=== PATIENT | female | born 1970 | race Caucasian/White ===

== ENCOUNTER → 2016-06-30 | Outpatient (CLI) | payer BC ==
[~2016-06-30] MED LIST: BEYAZ1 TAB PO; BIRTH CONTROL; FLAGYL500 MG PO; LORTAB 5/500 501 TAB PO; ZOFRAN 4MG T4 MG/TAB PO
== END ==
LOC: MC.RAD 08:52
DX: Z12.31 Encounter for screening mammogram for malignant neoplasm of breast (principal)

== ENCOUNTER → 2018-08-16 | Outpatient (CLI) | payer BC | LOC: MC.RAD 11:42 | DX: Z12.31 Encounter for screening mammogram for malignant neoplasm of breast (principal) ==

== ENCOUNTER → 2020-07-12 | Outpatient (CLI) | payer BC | LOC: MC.RAD | DX: R92.2 Inconclusive mammogram (principal); R92.8 Other abnormal and inconclusive findings on diagnostic imaging of breast; N63.20 Unspecified lump in the left breast, unspecified quadrant ==

== ENCOUNTER 2020-09-20 14:39 | Emergency (ER) | payer BC ==
[~2020-09-20] VITALS: Ht 162.6 cm; Wt 87.7 kg
[2020-09-20 14:54] VITALS: TEMP 98.3
[2020-09-20 16:12] VITALS: BP 143/83; PULSE 85
== END 2020-09-20 16:12 | disposition home or self-care (01) ==
LOC: COL.ER 14:39
DX: M79.662 Pain in left lower leg (principal); J45.909 Unspecified asthma, uncomplicated

== ENCOUNTER 2022-02-25 10:00 | Outpatient (CLI) | payer BC ==
[~2022-02-25] VITALS: Ht 162.7 cm; Wt 87.6 kg
[2022-02-25] MEDS ORDERED: CLARITIN 1010 MG/TAB PO (10:20)
[2022-02-25] MEDS ORDERED: CELEXA10 MG PO (10:21)
[2022-02-25] MEDS ORDERED: PULMICORT0.25 MG/2 IH (10:21)
[2022-02-25] MEDS ORDERED: MAXZIDE-25MG TA1 TAB PO (10:21)
[2022-02-25] MEDS ORDERED: PRAVACHOL10 MG PO (10:23)
[2022-02-25] MEDS ORDERED: ASPI325T6 PO (10:24)
[2022-02-25] MEDS ORDERED: TIAZAC360 MG PO (10:24)
[2022-02-25] MEDS ORDERED: TOPROL XL 25MG25 MG PO (10:24)
[2022-02-25 10:38] VITALS: BP 140/79; PULSE 61; TEMP 97.8
[2022-02-25 11:05] VITALS: BP 125/64; PULSE 63
--- NOTE | 2022-02-25 11:50 | NUR ---
DC instructions reviewed with pt, she expresses understanding. Dressing over loop insert site remains clean, dry and intact. Pt escorted out to entrance with belongings. Gait steady.
== END 2022-02-25 11:50 | disposition home or self-care (01) ==
LOC: COL.CAR 10:00
DX: R55 Syncope and collapse (principal); R00.0 Tachycardia, unspecified; R00.2 Palpitations; R01.1 Cardiac murmur, unspecified; M79.605 Pain in left leg; M79.604 Pain in right leg; I10 Essential (primary) hypertension; I65.29 Occlusion and stenosis of unspecified carotid artery; Z79.82 Long term (current) use of aspirin; Z79.899 Other long term (current) drug therapy; Z82.49 Family history of ischemic heart disease and other diseases of the circulatory system
CPT/HCPCS: 27886; C1764

== ENCOUNTER → 2022-08-06 | Outpatient (CLI) | payer BC ==
[~2022-08-06] MED LIST changes: +ASPI325T6 PO; +CELEXA10 MG PO; +CLARITIN 1010 MG/TAB PO; +MAXZIDE-25MG TA1 TAB PO; +PRAVACHOL10 MG PO; +PULMICORT0.25 MG/2 IH; +TIAZAC360 MG PO; +TOPROL XL 25MG25 MG PO
== END ==
LOC: COL.RAD 07:27
DX: R55 Syncope and collapse (principal); R42 Dizziness and giddiness; R51.9 Headache, unspecified; R20.8 Other disturbances of skin sensation; R26.9 Unspecified abnormalities of gait and mobility
CPT/HCPCS: Q9967